=== PATIENT | female | born 1955 | race Caucasian/White ===

== ENCOUNTER 2016-11-06 12:57 | Observation (INO) | payer OTHER ==
--- NOTE | 2016-11-06 13:44 | EDPHY ---
H & P Time Seen by Provider: 11/06/16 13:26 HPI/ROS: CHIEF COMPLAINT: Left arm discomfort, nausea HISTORY OF PRESENT ILLNESS: Patient is a 52-year-old female who presents emergency department with ongoing left arm discomfort. Her pain started her forearm and radiates to her scapula. It is mildly worse with movement. She feels as though it is mildly worse when she takes a deep breath. No shortness of breath. No fevers or chills. No cough. No chest pain. No abdominal pain. Mild nausea with no vomiting. No diaphoresis. No leg pain or swelling. REVIEW OF SYSTEMS: My complete review of systems is negative except as mentioned in the HPI. Past Medical/Surgical History: Includes alcoholism in remission, hypertension, hypercholesterolemia, kidney stone Past surgical history: Bilateral breast implants with subsequent removal, cyst removal from sciatic nerve. Smoking Status: Light smoker Physical Exam: Vitals noted. GENERAL: Well-appearing, in no acute distress, alert. HEENT: Eyes normal to inspection, normal pharynx, no signs of dehydration. NECK: No thyromegaly, no lymphadenopathy, supple. No bruit RESPIRATORY: Clear to auscultation bilaterally, no rales, rhonchi or wheezing. CVS: Regular rate and rhythm, no rubs, murmurs, or gallops. ABDOMEN: Soft, nontender, nondistended, no organomegaly. BACK: Normal to inspection, no CVA tenderness. SKIN: Normal color, no rash, warm, dry. No pallor. EXTREMITIES: No pedal edema, no calf tenderness, no Homans sign or cords, no joint swelling. Patient's left upper extremity appears normal. There are no cords. No swelling. No redness. Full range of motion of the shoulder, elbow and wrist. Neurovascularly intact distally. NEURO/PSYCH: Higher functions: Alert and Oriented x3. Normal speech and cognition. Normal mood and affect. Cranial nerves: Normal as tested. Cerebellar: Normal as tested. Good finger to nose, good [id number], normal gait. Peripheral exam: Normal motor exam. Normal sensation. Constitutional: Initial Vital Signs Temperature (C) 36.7 C 11/06/16 13:06 Heart Rate 64 11/06/16 13:06 Respiratory Rate 18 11/06/16 13:06 Blood Pressure 124/88 H 11/06/16 13:06 O2 Sat (%) 97 11/06/16 13:06 O2 Delivery Mode Room Air Allergies/Adverse Reactions: levofloxacin [From Levaquin] Allergy (Mild, Verified 11/06/16 13:02) Itching Home Medications: Medication Instructions Recorded ESTROGEN,CON/M-PROGEST ACET 1 each PO DAILY 07/04/12 [Prempro 0.625-2.5 Mg Tablet] Fluoxetine HCl [Prozac 40 mg] 40 mg PO DAILY 07/04/12 clonazePAM [KlonOPIN] 1 mg PO Q8 PRN #2 tab 09/04/14 Amlodipine Besylate 11/06/16 Seroquel 11/06/16 Medical Decision Making - Diagnostics Imaging Results: Imaging Impressions Chest X-Ray 11/06/16 13:45 Impression: New interstitial prominence (curly B lines) at the bases only. ED Course/Re-evaluation: In the emergency department I discussed possible etiologies with the patient. I answered all her questions. An IV was placed. Laboratory studies and EKG were ordered. EKG shows normal sinus rhythm, [normal rate, normal axis, normal intervals]. Flat T-waves V1-V3, slight depression V4-V6 Patient's CBC and chemistry were normal. Troponin and D-dimer were negative. Chest x-ray: Curly B lines at bases. Based on patient's EKG findings I paged Cardiology to have them evaluated the patient. Dr. Velazco from cardiology recommends patient be admitted. I discussed this with the patient and answered all her questions. I contacted Dr. Adams. He accepted the patient. Differential Diagnosis: Differential includes but is not limited to ACS, acute IA, pulmonary embolus, pneumonia, pneumothorax, brachial plexus injury, dissection, aneurysm, CVA - Data Points Laboratory Results: Laboratory Results 11/06/16 14:05 11/06/16 13:45 11/06/16 11/06/16 11/06/16 14:05 14:05 14:05 WBC 5.69 10^3/uL 10^3/uL (3.80-9.50) RBC 4.06 10^6/uL L 10^6/uL (4.18-5.33) Hgb 13.1 g/dL g/dL (12.6-16.3) Hct 39.3 % % (38.0-47.0) MCV 96.8 fL fL (81.5-99.8) MCH 32.3 pg pg (27.9-34.1) MCHC 33.3 g/dL g/dL (32.4-36.7) RDW 13.6 % % (11.5-15.2) Plt Count 262 10^3/uL 10^3/uL (150-400) MPV 9.6 fL fL (8.7-11.7) Neut % (Auto) 58.2 % % (39.3-74.2) Lymph % (Auto) 28.3 % % (15.0-45.0) Sequoyah % (Auto) 9.0 % % (4.5-13.0) Eos % (Auto) 3.2 % % (0.6-7.6) Baso % (Auto) 1.1 % % (0.3-1.7) Nucleat RBC Rel Count 0.0 % % (0.0-0.2) Absolute Neuts (auto) 3.32 10^3/uL 10^3/uL (1.70-6.50) Absolute Lymphs (auto) 1.61 10^3/uL 10^3/uL (1.00-3.00) Absolute Monos (auto) 0.51 10^3/uL 10^3/uL (0.30-0.80) Absolute Eos (auto) 0.18 10^3/uL 10^3/uL (0.03-0.40) Absolute Basos (auto) 0.06 10^3/uL 10^3/uL (0.02-0.10) Absolute Nucleated RBC 0.00 10^3/uL 10^3/uL (0-0.01) Immature Gran % 0.2 % % (0.0-1.1) Immature Gran # 0.01 10^3/uL 10^3/uL (0.00-0.10) D-Dimer 0.29 ug/mLFEU ug/mLFEU (0.00-0.50) Sodium Potassium Chloride Carbon Dioxide Anion Gap BUN Creatinine Estimated GFR Glucose Calcium Troponin I Beta HCG, Qual NEGATIVE 11/06/16 13:45 WBC RBC Hgb Hct MCV MCH MCHC RDW Plt Count MPV Neut % (Auto) Lymph % (Auto) [place]oy[place] % (Auto) Eos % (Auto) Baso % (Auto) Nucleat RBC Rel Count Absolute Neuts (auto) Absolute Lymphs (auto) Absolute Monos (auto) Absolute Eos (auto) Absolute Basos (auto) Absolute Nucleated RBC Immature Gran % Immature Gran # D-Dimer Sodium 144 mEq/L mEq/L (134-144) Potassium 3.5 mEq/L mEq/L (3.5-5.2) Chloride 108 mEq/L mEq/L (97-110) Carbon Dioxide 22 mEq/l mEq/l (22-31) Anion Gap 14 mEq/L mEq/L (8-16) BUN 12 mg/dL mg/dL (7-23) Creatinine 0.8 mg/dL mg/dL (0.6-1.0) Estimated GFR > 60 Glucose 85 mg/dL mg/dL (70-100) Calcium 9.2 mg/dL mg/dL (8.5-10.4) Troponin I < 0.012 ng/mL ng/mL (0-0.034) Beta HCG, Qual Medications Given: Discontinued Medications Aspirin (Aspirin) 324 mg PO EDNOW ONE Stop: 11/06/16 13:46 Last Admin: 11/06/16 14:16 Dose: 324 mg Departure - Departure Disposition: [facility] Inpatient Acute Clinical Impression: Left arm pain, Abnormal EKG Condition: Good Instructions: Arm Pain (ED) Referrals: CHANDA REDDY [Primary Care Provider] - 2-3 days, if not improved
[2016-11-06] MEDS ORDERED: ASPIRIN 81 MG CHEWABLE TAB PO ONE (13:45)
--- NOTE | 2016-11-06 14:13 | CPEKG ---
Heart Rate: 58 RR Interval: 1034 P-R Interval: 160 QRSD Interval: 82 QT Interval: 444 QTC Interval: 437 P Dublin: 54 QRS [place]: 34 T Wave [place]: 24 EKG Severity - ABNORMAL ECG - EKG Impression: SINUS RHYTHM EKG Impression: NONSPECIFIC T ABNORMALITIES, ANT-LAT LEADS Electronically Signed By: Qi Pride 06-Nov-2016 20:44:33
[2016-11-06 14:19] LABS: % IMMATURE GRANULYOCYTES 0.2 % (0.0-1.1); ABSOLUTE IMMATURE GRANULOCYTES 0.01 10^3/uL (0.00-0.10); ADD DIFF? NO; ADD MORPH? NO; ADD SCAN? NO; ATYPICAL LYMPHOCYTE FLAG 40 (0-99); FRAGMENT RBC FLAG 0 (0-99); HEMATOCRIT 39.3 % (38.0-47.0); HEMOGLOBIN 13.1 g/dL (12.6-16.3); LEFT SHIFT FLG 0 (0-99); LIPEMIA HEMOLYSIS FLAG 80 (0-99); MEAN CELL HEMOGLOBIN 32.3 pg (27.9-34.1); MEAN CELL HEMOGLOBIN CONCENTR. 33.3 g/dL (32.4-36.7); MEAN CELL VOLUME 96.8 fL (81.5-99.8); MEAN PLATELET VOLUME 9.6 fL (8.7-11.7); PLATELET CLUMPS FLAG 0 (0-99); PLATELET COUNT 262 10^3/uL (150-400); RED BLOOD CELL COUNT 4.06 10^6/uL (4.18-5.33); RED CELL DISTRIBUTION WIDTH 13.6 % (11.5-15.2)
[2016-11-06 14:33] LABS: ANION GAP 14 mEq/L (8-16); CALCIUM 9.2 mg/dL (8.5-10.4); CARBON DIOXIDE 22 mEq/l (22-31); CHLORIDE 108 mEq/L (97-110); CREATININE 0.8 mg/dL (0.6-1.0); GLOMERULAR FILTRATION RATE > 60; GLUCOSE 85 mg/dL (70-100); POTASSIUM 3.5 mEq/L (3.5-5.2); SODIUM 144 mEq/L (134-144)
[2016-11-06 14:43] LABS: TROPONIN I < 0.012 ng/mL (0-0.034)
[2016-11-06] MEDS ORDERED: ONDANSETRON DISINTEGRATING 4 MG TAB PO PRN (16:41)
[2016-11-06] MEDS ORDERED: oxyCODONE IR 5 MG TAB PO PRN (16:41)
[2016-11-06] MEDS ORDERED: ACETAMINOPHEN 325 MG TAB PO PRN (16:41)
[2016-11-06] MEDS ORDERED: ONDANSETRON 4 MG/2 ML VIAL IVP PRN (16:41)
--- NOTE | 2016-11-06 16:48 | PDGENHP ---
History and Physical - Chief Complaint acute arm pain - History of Present Illness primary care provider: Dr. haley HPI: 60-year-old female presenting with acute arm pain located in the left posterior shoulder radiating up to the left neck characterized as burning with associated paresthesias in her left upper extremity. She reports onset of symptoms 15-20 days ago and the symptoms appear to be exacerbated and more pronounced when she gets up from sleep. Reports that they are somewhat alleviated by palpation over the posterior left shoulder. She also reports that they are somewhat alleviated with rest. She notes that she is very physically active and the symptoms somewhat exacerbated by her physical activity. She also reports that she has significant amount of emotional stress and this has been exacerbated by an upcoming move which she and her are undertaking to [facility] on 11/20/2016. History Information - Allergies/Home Medication List Allergies/Adverse Reactions: levofloxacin [From Levaquin] Allergy (Mild, Verified 11/06/16 13:02) Itching Home Medications: ESTROGEN,CON/M-PROGEST ACET [Prempro 0.625-2.5 Mg Tablet] 1 each PO DAILY [Last Taken Unknown] Fluoxetine HCl [Prozac 40 mg] 40 mg PO DAILY 07/04/12 [Last Taken Unknown] Amlodipine Besylate 11/06/16 [Last Taken Unknown] Seroquel 11/06/16 [Last Taken Unknown] I have personally reviewed and updated: family history, medical history, social history, surgical history - Past Medical History hypertension, hyperlipidemia Additional medical history: PTSD. Nephrolithiasis with lithotripsy - Surgical History Additional surgical history: bilateral ureteral stents. Back surgery. Breast augmentation - Family History Additional family history: father with myocardial infarction at age 55, mother with colon cancer - Social History Smoking Status: Light smoker Alcohol Use: None Drug Use: None Additional social history: very physically active, engages in yoga daily, relocated [facility] at the end of this month Review of Systems ROS: 10pt was reviewed & negative except for what was stated in HPI & below Muscolosketal: Reports: joint pain ( arm pain), neck pain Neurological: Reports: paresthesia Physical Exam Temp Pulse Resp BP Pulse Ox 36.7 C 65 16 167/100 H 97 11/06/16 13:06 11/06/16 16:15 11/06/16 16:15 11/06/16 16:15 11/06/16 16:15 Constitutional: no apparent distress, appears nourished, not in pain Eyes: PERRL, anicteric sclera, EOMI Ears, Nose, Mouth, Throat: moist mucous membranes, hearing normal, ears appear normal, no oral mucosal ulcers Cardiovascular: regular rate and rhythym, no murmur, rub, or gallop, No edema Respiratory: no respiratory distress, no rales or rhonchi, clear to auscultation Gastrointestinal: normoactive bowel sounds, soft, non-tender abdomen, no palpable masses Skin: other ( several small vesicles over her upper anterior abdomen without any surrounding erythema) Musculoskeletal: other ( full range of motion left shoulder without provoking any pain, tenderness over the left trapezius muscle, full range of motion of her neck without eliciting any pain) Neurologic: AAOx3, sensation intact bilaterally, No weakness, No facial droop Psychiatric: interacting appropriately, not anxious, not encephalopathic, thought process linear Lab Data & Imaging Review 11/06/16 14:05 11/06/16 13:45 WBC 5.69 10^3/uL (3.80-9.50) 11/06/16 14:05 RBC 4.06 10^6/uL (4.18-5.33) L 11/06/16 14:05 Hgb 13.1 g/dL (12.6-16.3) 11/06/16 14:05 Hct 39.3 % (38.0-47.0) 11/06/16 14:05 MCV 96.8 fL (81.5-99.8) 11/06/16 14:05 MCH 32.3 pg (27.9-34.1) 11/06/16 14:05 MCHC 33.3 g/dL (32.4-36.7) 11/06/16 14:05 RDW 13.6 % (11.5-15.2) 11/06/16 14:05 Plt Count 262 10^3/uL (150-400) 11/06/16 14:05 MPV 9.6 fL (8.7-11.7) 11/06/16 14:05 Neut % (Auto) 58.2 % (39.3-74.2) 11/06/16 14:05 Lymph % (Auto) 28.3 % (15.0-45.0) 11/06/16 14:05 [place] % (Auto) 9.0 % (4.5-13.0) 11/06/16 14:05 Eos % (Auto) 3.2 % (0.6-7.6) 11/06/16 14:05 Baso % (Auto) 1.1 % (0.3-1.7) 11/06/16 14:05 Nucleat RBC Rel Count 0.0 % (0.0-0.2) 11/06/16 14:05 Absolute Neuts (auto) 3.32 10^3/uL (1.70-6.50) 11/06/16 14:05 Absolute Lymphs (auto) 1.61 10^3/uL (1.00-3.00) 11/06/16 14:05 Absolute Monos (auto) 0.51 10^3/uL (0.30-0.80) 11/06/16 14:05 Absolute Eos (auto) 0.18 10^3/uL (0.03-0.40) 11/06/16 14:05 Absolute Basos (auto) 0.06 10^3/uL (0.02-0.10) 11/06/16 14:05 Absolute Nucleated RBC 0.00 10^3/uL (0-0.01) 11/06/16 14:05 Immature Gran % 0.2 % (0.0-1.1) 11/06/16 14:05 Immature Gran # 0.01 10^3/uL (0.00-0.10) 11/06/16 14:05 D-Dimer 0.29 ug/mLFEU (0.00-0.50) 11/06/16 14:05 Sodium 144 mEq/L (134-144) 11/06/16 13:45 Potassium 3.5 mEq/L (3.5-5.2) 11/06/16 13:45 Chloride 108 mEq/L (97-110) 11/06/16 13:45 Carbon Dioxide 22 mEq/l (22-31) 11/06/16 13:45 Anion Gap 14 mEq/L (8-16) 11/06/16 13:45 BUN 12 mg/dL (7-23) 11/06/16 13:45 Creatinine 0.8 mg/dL (0.6-1.0) 11/06/16 13:45 Estimated GFR > 60 11/06/16 13:45 Glucose 85 mg/dL (70-100) 11/06/16 13:45 Calcium 9.2 mg/dL (8.5-10.4) 11/06/16 13:45 Troponin I < 0.012 ng/mL (0-0.034) 11/06/16 13:45 Beta HCG, Qual NEGATIVE 11/06/16 14:05 Visualized and Interpreted Chest x-ray results: Yes Chest X-Ray results: no infiltrate Visualized and Interpreted EKG results: Yes EKG Interpretation: Positive for: other ( normal sinus rhythm with less than [address] depressions in leads V 4 V5, flat T-waves in the to in V3) Assessment & Plan Assessment: 60-year-old female presenting with acute arm pain in the setting of hypertension, hyperlipidemia, subtle EKG abnormalities Plan: 1. Arm pain. Acute, new problem this provider, further workup indicated. It possible this could be an anginal equivalent in the setting of hypertension, hyperlipidemia, subtle EKG abnormalities, further risk stratification is indicated - lipid panel in a.m. - monitor on telemetry overnight - Dr. Pride contacted Dr. Velazco, she recommended further cardiac risk stratification - get exercise EKG stress test - I suspect the patient's pain may be more likely to be muscle inflammation and irritation, if above workup is negative, would recommend scheduled nonsteroidal anti-inflammatory medications for next week as well as increased stretching exercises and ongoing therapy for her PTSD 2. Hypertension. Continue home medications once reconciled 3. Nephrolithiasis. Chronic, reviewed discharge summary by Sharon Smith from 07/04/2012, indicating the patient has had kidney stones as well as lithotripsy, do not believe that her current presentation is related Diet. Cardiac, then NPO after midnight prophylaxis. Low risk patient, SCDs Code. Full Disposition. Anticipated discharge is 11/07/2016, pending further workup as outlined above. I have discussed patient's presentation with Dr. Pride, we both agree that given patient's subtle EKG abnormalities that the patient warrants further cardiac risk stratification.
[2016-11-06] MEDS ORDERED: clonazePAM 1 MG TAB PO PRN (18:44)
[2016-11-06] MEDS ORDERED: QUEtiapine FUMARATE 25 MG TAB PO SCH (21:00)
[2016-11-07 04:43] LABS: % IMMATURE GRANULYOCYTES 0.2 % (0.0-1.1); ABSOLUTE IMMATURE GRANULOCYTES 0.01 10^3/uL (0.00-0.10); ADD DIFF? NO; ADD MORPH? NO; ADD SCAN? NO; ATYPICAL LYMPHOCYTE FLAG 0 (0-99); FRAGMENT RBC FLAG 0 (0-99); HEMATOCRIT 38.1 % (38.0-47.0); HEMOGLOBIN 12.4 g/dL (12.6-16.3); LEFT SHIFT FLG 0 (0-99); LIPEMIA HEMOLYSIS FLAG 80 (0-99); MEAN CELL HEMOGLOBIN CONCENTR. 32.5 g/dL (32.4-36.7); MEAN CELL VOLUME 98.2 fL (81.5-99.8); MEAN PLATELET VOLUME 9.9 fL (8.7-11.7); PLATELET CLUMPS FLAG 0 (0-99); PLATELET COUNT 246 10^3/uL (150-400); RED BLOOD CELL COUNT 3.88 10^6/uL (4.18-5.33); RED CELL DISTRIBUTION WIDTH 13.6 % (11.5-15.2)
[2016-11-07 06:08] LABS: ANION GAP 11 mEq/L (8-16); CALCIUM 8.9 mg/dL (8.5-10.4); CARBON DIOXIDE 21 mEq/l (22-31); CHLORIDE 109 mEq/L (97-110); CHOLESTEROL 188 mg/dL (140-220); CHOLESTEROL/HDL RATIO 3.62 RATIO (1.00-4.44); CREATININE 0.8 mg/dL (0.6-1.0); GLOMERULAR FILTRATION RATE > 60; GLUCOSE 77 mg/dL (70-100); HIGH DENSITY LIPOPROTEIN 52 mg/dL (40-85); LOW DENSITY LIPOPROTEIN 99 mg/dL (80-100); MAGNESIUM 1.9 mg/dL (1.6-2.3); NON-HIGH DENSITY LIPOPROTEIN 136 mg/dL (90-129); POTASSIUM 4.1 mEq/L (3.5-5.2); SODIUM 141 mEq/L (134-144); TRIGLYCERIDE 188 mg/dL (35-135); VERY LOW DENSITY LIPOPROTEINS 37 mg/dL (8-25)
[2016-11-07 06:13] LABS: TROPONIN I < 0.012 ng/mL (0-0.034)
[2016-11-07 08:31] VITALS: BP 149/83; PULSE 57; RESP 15; TEMP 98.2; O2SAT 96
[2016-11-07] MEDS ORDERED: amLODIPine BESYLATE 5 MG TAB PO SCH (09:00)
[2016-11-07] MEDS ORDERED: ESTROGEN CON PO SCH (09:00)
[2016-11-07] MEDS ORDERED: M PROGEST ACET PO SCH (09:00)
[2016-11-07] MEDS ORDERED: PNEUMOCOCCAL 0.5ML VACCINE VIAL IM ONE ×2 (09:00→16:00)
--- NOTE | 2016-11-08 06:01 | CPR ---
[f rep st] NONINVASIVE CARDIAC PROCEDURE REPORT PROCEDURE: Exercise treadmill testing. INDICATION FOR PROCEDURE: Episodes of chest pressure and abnormal electrocardiogram. PRE: After obtaining informed consent, the patient was placed on 12-lead EKG. Initial EKG shows si nus rhythm with nonspecific ST abnormalities in inferolateral leads. The patient denies any chest p ain, shortness of breath, or symptoms suggesting of ischemia. Saturation 95% on room air, blood pre ssure of 138/80. STRESS: The patient was placed onto exercise treadmill, following standard Grey protocol, with the following findings: 1. The patient exercised for 12 minutes. 2. 12.2 METS. 3. The patient obtained a heart rate of 157 beats per minute at maximum effort, which was 97% of he r MPHR. 4. The patient had no chest pressure or symptoms suggesting of ischemia during exertion. 5. No EKG changes at peak exercise suggesting ischemia. 6. No arrhythmias noted during rest, stress, or recovery. 7. The patient's SpO2 remained greater than 90% throughout stress testing. 8. BP variations: Rest 138/80, peak 176/80. 9. Test was stopped due to maximum effort. 10. Goddard treadmill score of 12, placing patient at low cardiovascular risk. RECOVERY: The patient recovered for 5 minutes with heart rate and blood pressure returning back to baseline. She remained asymptomatic. Again, no arrhythmias noted. Vital signs were stable. Natasha cook returned to PCU. IMPRESSION: 61-year-old female with reported family history of coronary artery disease, hypertensio n, nonspecific T-wave abnormalities on resting EKG, reporting left shoulder pain. Negative troponin since admission to the hospital. Exercise treadmill showing no ischemic changes at peak exercise, patient asymptomatic during stress testing. Goddard treadmill score of 12, placing her at low cardiova scular risk. Results called to hospitalist services. /[id number]/MODL
--- NOTE | 2016-11-08 07:31 | GDS ---
[f rep st] DISCHARGE SUMMARY DISCHARGE DIAGNOSES: 1. Left arm pain likely musculoskeletal. 2. Hypertension adequately controlled. 3. Post traumatic stress disorder and anxiety. CONSULTANTS: None. HISTORY OF DETAILS: Please also see the history and physical dated November 06, 2016. In brief, the pa gisel is a 61-year-old female with a history of hypertension, hyperlipidemia, and a family history r emarkable for premature heart disease who presents to the emergency department with left arm pain. There was some concern this could be an anginal equivalent given her risk factors, and she was admit edgar to the hospital for further evaluation. HOSPITAL COURSE: She was admitted to the progressive care unit. She had negative troponins x2. He r EKG showed normal sinus rhythm with some T wave flattening in her anterior leads but otherwise no evidence of acute ischemia. She had no chest pressure, shortness of breath, diaphoresis, or nausea. She underwent an exercise stress test which was negative for ischemia. Further history reveals sh emmy has been doing some yoga with side plank and she notes this caused some pinching, muscular pain he r traps and shoulder region. Her pain does seem to be positional and musculoskeletal in origin. DISPOSITION: Patient is discharged home in stable condition. DISCHARGE MEDICATIONS: Please see [place] for completed outpatient medication list. She can take Tylenol and ibuprofen for her arm pain. She will continue all other outpatient medications as previ ously prescribed. FOLLOWUP: Patient will follow up with Dr. Agnieszka Gambino, primary care provider. /[id number]/MODL
== END 2016-11-07 15:59 | disposition home or self-care (01) ==
LOC: F2W 17:07
PROVIDERS: ADMIT Internal Medicine; ATTEND Hospitalist
DX: M79.602 Pain in left arm (principal); R94.31 Abnormal electrocardiogram [ECG] [EKG]; I10 Essential (primary) hypertension; F43.10 Post-traumatic stress disorder, unspecified; F41.9 Anxiety disorder, unspecified; E78.5 Hyperlipidemia, unspecified; F10.21 Alcohol dependence, in remission; Z87.442 Personal history of urinary calculi; Z82.49 Family history of ischemic heart disease and other diseases of the circulatory system; Z23 Encounter for immunization
CPT/HCPCS: 71020; 90471; 93005; 93017; 99285; G0378; G0009

== ENCOUNTER 2018-01-23 07:32 | Emergency (ER) | payer OTHER ==
[2018-01-23] MEDS ORDERED: HYDROmorphONE/DILAUDID 2 MG/ML INJ IVP ONE (08:16)
[2018-01-23] MEDS ORDERED: LORazepam 2 MG/ML INJ IVP ONE (08:16)
--- NOTE | 2018-01-23 08:16 | EDPHY ---
H & P Stated Complaint: Pt woke with 1st time R trapezius spasm/tenderness Time Seen by Provider: 01/23/18 08:01 HPI/ROS: CHIEF COMPLAINT: Right trapezius pain HISTORY OF PRESENT ILLNESS: The patient is a 62-year-old female who comes to the emergency department complaining of severe spasming pain in her right trapezius. She has been having a lot of stress recently. She has a history of anxiety and PTSD. She took sleep medication last night. She slept on her right arm throughout the entire night without really rolling over or moving. This morning she woke up with severe pain to her right trapezius area. No weakness or deficits. She is quite dramatic and is crying out in pain which her family seems to think his somewhat baseline. She is concerned because a history of early heart disease in her family. She was admitted a year ago for left shoulder pain after doing yoga side plank. She had 2 negative troponins and a negative stress test in the hospital. She has not had any shortness of breath or chest pain. Severity: Severe Modifying factors: Worsened by movement or palpation REVIEW OF SYSTEMS: Constitutional: denies: chills, fever, recent illness, recent injury EENTM: denies: blurred vision, double vision, nose congestion Respiratory: denies: cough, shortness of breath Cardiac: denies: chest pain, irregular heart rate, lightheadedness, palpitations Gastrointestinal/Abdominal: denies: abdominal pain, diarrhea, nausea, vomiting, blood streaked stools Genitourinary: denies: dysuria, frequency, hematuria, pain Musculoskeletal: See HPI Skin: denies: lesions, rash, jaundice, bruising Neurological: denies: headache, numbness, paresthesia, tingling, dizziness, weakness Hematologic/Lymphatic: denies: blood clots, easy bleeding, easy bruising Immunologic/allergic: denies: HIV/AIDS, transplant 10 systems reviewed and negative except as noted EXAM: GENERAL: Well-appearing, well-nourished and in no acute distress. HEAD: Atraumatic, normocephalic. EYES: Pupils equal round and reactive to light, extraocular movements intact, sclera anicteric, conjunctiva are normal. ENT: TMs normal, nares patent, oropharynx clear without exudates. Moist mucous membranes. NECK: Normal range of motion, supple without lymphadenopathy or JVD. LUNGS: Breath sounds clear to auscultation bilaterally and equal. No wheezes rales or rhonchi. HEART: Regular rate and rhythm without murmurs, rubs or gallops. ABDOMEN: Soft, nontender, normoactive bowel sounds. No guarding, no rebound. No masses appreciated. BACK: No CVA tenderness, no spinal tenderness, step-offs or deformities EXTREMITIES: Pain in right trapezius area. Pain with range of motion of shoulder or elbow or palpation of any part of the right arm. no pitting or edema. No clubbing or cyanosis. Normal pulses. Normal hand rn relief charge. NEUROLOGICAL: Cranial nerves II through XII grossly intact. Normal speech, normal gait. 5/5 strength, normal movement in all extremities, normal sensation , normal reflexes PSYCH: Quite dramatic, crying out, able to calm with verbal reassurance. SKIN: Warm, dry, normal turgor, no visible rashes or lesions. Source: Patient Exam Limitations: No limitations - Personal History Current Tetanus/Diphtheria Vaccine: Unsure - Medical/Surgical History Hx Asthma: No Hx Chronic Respiratory Disease: No Hx Diabetes: No Hx Cardiac Disease: No Hx Renal Disease: No Hx Cirrhosis: No Hx Alcoholism: Yes Hx HIV/AIDS: No Hx Splenectomy or Spleen Trauma: No Other PMH: PMH: Alcoholism, HTN, Hypercholesterolemia,. PSH: Bilat breast implants, back surg (cyst removed) - Family History Significant Family History: No pertinent family hx - Social History Smoking Status: Former smoker Alcohol Use: Sober Drug Use: None Constitutional: Initial Vital Signs Temperature (C) 36.6 C 01/23/18 07:38 Heart Rate 78 01/23/18 07:38 Respiratory Rate 22 H 01/23/18 07:38 O2 Sat (%) 96 01/23/18 07:38 O2 Delivery Mode Room Air Allergies/Adverse Reactions: levofloxacin [From Levaquin] Allergy (Mild, Verified 01/23/18 07:57) Itching Home Medications: Medication Instructions Recorded ESTROGEN,CON/M-PROGEST ACET 1 each PO DAILY 07/04/12 [PREMPRO 0.625-2.5 MG TABLET] clonazePAM [klonoPIN (*)] 1 mg PO Q8 PRN #2 tab 09/04/14 Amlodipine Besylate [Norvasc] 5 mg PO DAILY 11/06/16 QUEtiapine FUMARATE [Seroquel 25 25 mg PO HS 11/06/16 mg (*)] Acetaminophen [Tylenol 325mg (*)] 650 mg PO Q4HRS PRN #0 tab 11/07/16 Diazepam [Valium 5 MG (*)] 5 mg PO TID PRN #15 tab 01/23/18 Medical Decision Making - Diagnostics EKG Interpretation: An EKG obtained and was read and documented in trace view. Please see trace view for full reading and report. Sinus rhythm, no acute ischemic changes, T- wave inversions similar to previous Imaging: Discussed imaging studies w/ square dance caller Radiologist ED Course/Re-evaluation: The patient is feeling 100% better after Ativan. She has normal range of motion. Normal sensation and movement. I suspect this is muscle spasming. She does have degenerative disc disease on her CT scan also straightening consistent with spasming. We agreed to treat her initially as muscle spasming with bath Valium and anti-inflammatories. I also encouraged her to follow up with food safety specialist if her symptoms worsen or do not improve for further imaging and workup. We also discussed indications for return to the emergency department including weakness. Differential Diagnosis: Partial list of the Differential diagnosis considered include but were not limited to; cervical strain, radiculopathy and although unlikely based on the history and physical exam, I also considered infection, fracture. I discussed these differential diagnoses and the plan with the patient as well as the usual and expected course. The patient understands that the diagnosis is provisional and that in medicine we are not always correct and that further workup is often warranted. Usual and customary warnings were given. All of the patient's questions were answered. The patient was instructed to return to the emergency department should the symptoms at all worsen or return, otherwise to followup with the physician as we discussed. - Data Points Laboratory Results: Laboratory Results 01/23/18 08:20 01/23/18 08:20 Medications Given: Discontinued Medications Hydromorphone HCl (Dilaudid) 0.5 mg IVP EDNOW ONE Stop: 01/23/18 08:17 Last Admin: 01/23/18 08:27 Dose: 0.5 mg Ketorolac Tromethamine (Toradol) 30 mg IVP EDNOW ONE Stop: 01/23/18 09:28 Last Admin: 01/23/18 09:42 Dose: 30 mg Lorazepam (Ativan Injection) 1 mg IVP EDNOW ONE Stop: 01/23/18 08:17 Last Admin: 01/23/18 08:27 Dose: 1 mg Point of Care Test Results: Chemistry 01/23/18 08:24 POC Troponin I 0.01 ng/mL ng/mL (0.00-0.08) Departure - Departure Disposition: Home, Routine, Self-Care Clinical Impression: Strain of cervical portion of right trapezius muscle Condition: Fair Instructions: Cervical Strain (ED) Referrals: CHANDA REDDY [Primary Care Provider] - As per Instructions Gerson Cadena MD [Medical Doctor] - 5-7 days, if not improved Prescriptions: Diazepam [Valium 5 MG (*)] 5 mg PO TID PRN #15 tab PRN Reason: Spasms
[2018-01-23 08:37] LABS: PLATELET COUNT 351 10^3/uL (150-400)
--- NOTE | 2018-01-23 08:38 | CPEKG ---
Test Reason : OPEN Blood Pressure : / mmHG Vent. Rate : 073 BPM Atrial Rate : 074 BPM P-R Int : 136 ms QRS Dur : 083 ms QT Int : 412 ms P-R-T Axes : 047 009 056 degrees QTc Int : 454 ms Sinus rhythm Confirmed by Job Catalan ([id number]) on 01/23/2018 8:38:17 AM Referred By: Confirmed By:Job Catalan
[2018-01-23] MEDS ORDERED: KETOROLAC 30 MG/1 ML SDV IVP ONE (09:27)
[2018-01-23 09:48] VITALS: BP 135/75
== END 2018-01-23 09:59 | disposition home or self-care (01) ==
DX: S46.811A Strain of other muscles, fascia and tendons at shoulder and upper arm level, right arm, initial encounter (principal); I10 Essential (primary) hypertension; E78.00 Pure hypercholesterolemia, unspecified; Z87.891 Personal history of nicotine dependence; X50.1XXA Overexertion from prolonged static or awkward postures, initial encounter; Y93.84 Activity, sleeping; Y92.9 Unspecified place or not applicable; Y99.9 Unspecified external cause status
CPT/HCPCS: 84484-PO; 96374; J1170; J1885; J2060